=== PATIENT | female | born 1955 | race Caucasian/White ===

== ENCOUNTER 2018-05-06 18:48 | Emergency (ER) | payer BC, OTHER ==
--- NOTE | 2018-05-06 19:13 | ED Physician Documentation ---
PD HPI LOWER EXT INJURY - Stated complaint Stated Complaint: L FT PX - Chief complaint Chief Complaint: Ext Problem - History obtained from History obtained from: Patient - History of Present Illness PD HPI LOW EXT INJURY LOCATION: Left (Slipped on wet grass and hurt L ankle. No other injuries. Cannot walk/bear weight.) Review of Systems Ten Systems: 10 systems reviewed and negative Constitutional: reports: Reviewed and negative Throat: reports: Reviewed and negative Cardiac: reports: Reviewed and negative Respiratory: reports: Reviewed and negative PD PAST MEDICAL HISTORY - Past Medical History Past Medical History: Yes Psych: Depression - Present Medications Home Medications: Ambulatory Orders Medication Instructions Recorded Confirmed Knee Scooter 1 unit TD ONCE #1 05/06/18 Omeprazole 20 mg PO 05/06/18 Oxycodone HCl/Acetaminophen 1 - 2 each PO Q6H PRN #20 tablet 05/06/18 [Percocet 5-325 mg Tablet] Temazepam [Restoril] 30 mg PO 05/06/18 Thioridazine HCl 25 mg PO 05/06/18 buPROPion [Wellbutrin Sr] 100 mg PO BID 05/06/18 05/06/18 - Allergies Allergies/Adverse Reactions: Allergies Allergy/AdvReac Type Severity Reaction Status Date / Time fluoxetine [From Prozac] Allergy Unknown Verified 05/06/18 18:55 paroxetine [From Paxil] Allergy Unknown Verified 05/06/18 18:55 PD ED PE NORMAL - Vitals Vital signs reviewed: Yes - General General: Alert and oriented X 3, No acute distress - HEENT HEENT: PERRL, EOMI - Neck Neck: Supple, no meningeal sign, No bony TTP - Cardiac Cardiac: RRR, No murmur - Respiratory Respiratory: No respiratory distress, Clear bilaterally - Abdomen Abdomen: Soft, Non tender - Back Back: No CVA TTP, No spinal TTP - Derm Derm: Normal color, Warm and dry - Extremities Extremities: Other (Fairly deformed left ankle consistent with at least a bimalleolar fracture, she has bounding pedal pulses.) - Neuro Neuro: Alert and oriented X 3, Normal speech - Psych Psych: Normal mood, Normal affect Results - Vitals Vitals: Vital Signs - 24 hr 05/06/18 05/06/18 05/06/18 18:50 19:39 20:06 Temperature 36.7 C Heart Rate 101 H 87 80 Respiratory 20 18 20 Rate Blood Pressure 165/73 H 128/65 132/64 H O2 Saturation 98 95 98 05/06/18 05/06/18 05/06/18 20:13 20:19 20:35 Temperature Heart Rate 82 78 77 Respiratory 16 18 16 Rate Blood Pressure 129/55 L 147/69 H 127/65 O2 Saturation 88 L 98 96 05/06/18 05/06/18 05/06/18 20:51 21:07 21:12 Temperature Heart Rate 76 76 75 Respiratory 18 18 21 Rate Blood Pressure 127/65 123/65 116/68 O2 Saturation 97 93 94 05/06/18 05/06/18 05/06/18 21:15 21:42 21:49 Temperature Heart Rate 74 73 77 Respiratory 18 18 19 Rate Blood Pressure 120/60 109/70 111/65 O2 Saturation 96 96 93 05/06/18 05/06/18 21:54 21:59 Temperature Heart Rate 82 80 Respiratory 17 18 Rate Blood Pressure 141/73 H 114/70 O2 Saturation 88 L 94 Oxygen O2 Source Nasal cannula Oxygen Flow Rate 2 - Rads (name of study) 3v L ankle Radiology: EMP read contemporaneously (Trimalleolar fracture dislocation) Procedures - Splint (location) L ankle Splint applied by: Physician, Tech Type of splint: Fiberglass, Long leg, Posterior, Stirrup Other: Patient tolerated well, No complications, Neurovascular intact - Reduction Body part reduced: Left, Ankle Fracture or dislocation: Fracture dislocation Reduction aftercare: Splint applied - Procedural sedation Sedation prep: Informed consent, Time out completed, Last meal (5:15pm), PE performed, AHA 2 - mild disease Sedation medications: propofol (60mg IV with each attempt, #1/2 and 80mg then 20mg, then 20mg for attempt #3 totalling 120mg on the third sedation. Total sedation time by me... 35 min.) Patient status during sedation: Responds to tactile. No: Respiratory depression, Hypoxia Sedation recovery: Recovered uneventfully PD MEDICAL DECISION MAKING - ED course ED course: 62-year-old woman with isolated trimalleolar fracture dislocation of the left ankle. After consultation with the orthopedist I attempted reduction. Initially she was given 60 mg of propofol with good effect and she was reduced and splinted. The medial and lateral reduction was adequate but she still had posterior dislocation, so reduction attempt was repeated again with the same dos e of propofol, and on repeat x-rays a still was unhappy with the appearance of the posterior dislocation and I spoke with the orthopedic informatics consultant rubbish collection supervisor you can get Dr. Sage who will come in and would like to try it himself. She was sedated again, third time, and Dr. Sage successfully reduced it and place her in a plaster splint. - Consults Consults: Consulted (name) (Chely Sage, rubbish collection supervisor ortho, 193, rec reduction/splinting and will schedule for OR in 5-7 days) Departure - Departure Disposition: Home, Self Care Clinical Impression: Trimalleolar fracture of ankle, closed Qualifiers: Encounter type: initial encounter Laterality: left Qualified Code(s): S82.852A - Displaced trimalleolar fracture of left lower leg, initial encounter for closed fracture Condition: Good Record reviewed to determine appropriate education?: Yes Instructions: ED Fx Lower Ext Follow-Up: Dallas Sage MD [Provider Admit Priv/Credential] - Prescriptions: Knee Scooter 1 unit TD ONCE #1 Oxycodone HCl/Acetaminophen [Percocet 5-325 mg Tablet] 1 - 2 each PO Q6H PRN #20 tablet PRN Reason: pain Comments: Dr. Sage should be calling you to arrange for a surgical date. Elevation of the ankle is important, anytime you are not up you should have the ankle above the level of your heart. You can ice it through the splint. Do not remove the splint and keep it dry. Do not drink or drive while taking narcotic pain medication. Note that many narcotic pain relievers also contain Tylenol/acetaminophen. Please ensure that your total dose of acetaminophen from all sources does not exceed 3 g (3000 mg) per day. You may get constipated while on this medication. Take a stool softener such as Colace twice a day while you are on it. Also add an [id number] laxative such as senna or MiraLAX on any day that you do not have a bowel movement. If you received a narcotic pain medication or sedative while in the emergency department, do not drive for the next 24 hours. Your blood pressure was elevated today on check into the emergency department. This does not mean that you have hypertension, it is a common phenomenon to come to the emergency department and have elevated blood pressure. I recommend that you see your primary care physician within the week to have it rechecked when you are feeling better.
[2018-05-06] MEDS ORDERED: HYDROcod/ACETAM 5/325 MG TABLET PO STA (19:14)
[2018-05-06] MEDS ORDERED: ONDANSETRON 4 MG/2 ML VIAL IVP STA (19:16)
[2018-05-06] MEDS ORDERED: HYDROmorphone 1 MG/ML CARPUJECT IVP STA (19:16)
[2018-05-06] MEDS ORDERED: PROPOFOL 200 MG/20 ML VIAL IVP STA ×3 (19:38→22:03)
[2018-05-06] MEDS ORDERED: oxyCODONE/ACET 5/325 Prepack 4 PO STA (19:43)
--- NOTE | 2018-05-06 19:54 | XRAY Report ---
Reason: ankle inj Procedure Date: 05/06/2018 Accession Number: [id number] / [id number] Procedure: XR - Ankle 3 View LT CPT Code: FULL RESULT: EXAM: LEFT ANKLE RADIOGRAPHY EXAM DATE: 05/06/2018 07:24 PM. CLINICAL HISTORY: Left ankle pain after fall today. COMPARISON: None. TECHNIQUE: 3 views. FINDINGS: Bones: Moderately displaced transverse fracture through the base of the medial malleolus. Oblique Calvin type B lateral malleolar fracture with mild impaction and dorsolateral displacement and angulation of the distal fracture fragment. Mildly impacted vertical posterior malleolus fracture. Joints: The ankle mortise is disrupted, with dorsolateral dislocation of the talus with respect to the distal tibia, and valgus talar tilt. Soft Tissues: Diffuse soft tissue swelling. IMPRESSION: Trimalleolar ankle fracture dislocation. RADIA
[2018-05-06] MEDS ORDERED: PROPOFOL 200 MG/20 ML VIAL IVP ONE (20:49)
--- NOTE | 2018-05-06 20:51 | XRAY Report ---
Reason: post reduction Procedure Date: 05/06/2018 Accession Number: [id number] / [id number] Procedure: XR - Tib/Fib LT CPT Code: FULL RESULT: EXAM: LEFT TIBIA/FIBULA RADIOGRAPHY EXAM DATE: 05/06/2018 08:38 PM. CLINICAL HISTORY: Post reduction. COMPARISON: ANKLE 3 VIEW LT 05/06/2018 7:13 PM. TECHNIQUE: 2 views. FINDINGS: Bones: There are fractures involving the medial, posterior and lateral malleolus with mild to moderate displacement of fracture fragments. Proximally, the tibia and fibula are intact. Joints: There is posterior dislocation of the talus relative to the tibial plafond. Soft Tissues: Ankle soft tissue swelling. IMPRESSION: Trimalleolar fracture dislocation. RADIA
--- NOTE | 2018-05-06 21:44 | XRAY Report ---
Reason: post reduction 2nd time Procedure Date: 05/06/2018 Accession Number: [id number] / [id number] Procedure: XR - Ankle 2 View LT CPT Code: FULL RESULT: EXAM: LEFT ANKLE RADIOGRAPHY EXAM DATE: 05/06/2018 09:31 PM. CLINICAL HISTORY: Fracture post reduction. COMPARISON: ANKLE 3 VIEW LT 05/06/2018 7:13 PM LEG LOWER LT 05/06/2018 8:28 PM. TECHNIQUE: 2 views. FINDINGS: Bones: Again demonstrated are fractures of the medial and lateral malleolus. There is a posterior malleolus fracture on the lateral image. Joints: There is persistent posterior dislocation of the talus with respect to the articular surface of the distal tibia. Soft Tissues: There is splint cast present. IMPRESSION: 1. Persistent posterior dislocation of the talus with respect to the tibia on the lateral image. RADIA
[2018-05-06 22:25] VITALS: BP 121/63
--- NOTE | 2018-05-06 22:29 | XRAY Report ---
Reason: reduction 3rd attempt Procedure Date: 05/06/2018 Accession Number: [id number] / [id number] Procedure: XR - Ankle 2 View LT CPT Code: FULL RESULT: EXAM: LEFT ANKLE RADIOGRAPHY EXAM DATE: 05/06/2018 10:17 PM. CLINICAL HISTORY: Reduction 3rd attempt. COMPARISON: ANKLE 2 VIEW LT 05/06/2018 9:23 PM. TECHNIQUE: 3 views. FINDINGS: Bones: Status obtained with overlying plaster. The fracture dislocations of the ankle have been reduced. There is normal anatomic alignment between the tibia and the talus. The medial malleolar fracture in the posterior malleolar fractures are in anatomic alignment. RADIA
--- NOTE | 2018-05-12 10:55 | CONSULTATION NOTE ---
Referring Provider Name of Referring Provider:: Danika Daly MD Consult Date: 05/06/18 History of Present Illness - History of Present Illness HPI Comment/Other: Antonietta is a 62-year-old female who injured her left ankle and was found by the emergency medicine team to have a fracture dislocation. Patient had undergone multiple reduction attempts in the emergency room to no avail. Orthopedics was consulted and presents for evaluation of the patient and anticipated closed reduction attempt. Patient reports discomfort in her ankle but denies other significant trauma at this time. Denies previous significant left ankle injury. 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 : reports: None HEENT: reports: None Psych: reports: Depression Musculoskeletal: reports: None Derm: reports: None MRSA Hx?: No - Past Surgical History /HEAVY DUTY PRESS OPERATOR: reports: section, Oophrectomy - POLST Patient has POLST: No Meds/Allgy - Home Medications Home Medications: Ambulatory Orders Medication Instructions Recorded Confirmed Knee Scooter 1 unit TD ONCE #1 05/06/18 Omeprazole 20 mg PO 05/06/18 Oxycodone HCl/Acetaminophen 1 - 2 each PO Q6H PRN #20 tablet 05/06/18 [Percocet 5-325 mg Tablet] Temazepam [Restoril] 30 mg PO 05/06/18 Thioridazine HCl 25 mg PO 05/06/18 buPROPion [Wellbutrin Sr] 100 mg PO BID 05/06/18 05/06/18 - Allergies Allergies/Adverse Reactions: Allergies Allergy/AdvReac Type Severity Reaction Status Date / Time fluoxetine [From Prozac] Allergy Unknown Verified 05/06/18 18:55 paroxetine [From Paxil] Allergy Unknown Verified 05/06/18 18:55 Exam - Physical Exam Comments/Other: Patient is a well-developed somewhat overweight 62-year-old female in mild distress sitting upright in a hospital [place]. Patient's left lower extremity has soft roll in place which is removed. She has a palpable dorsalis pedis pulse noted she has cap refill less than 2 seconds all digits all digits equally warm throughout 4 compartments Compartments soft. Ankle appears posteriorly position compared to distal tibia. Please see procedure note dictated under separate cover. Post procedure patient is noted to have apparently well reduced ankle and remains neurovascularly intact and unchanged distally as examined in the splint. Conclusion/Plan - Other Other Results/Comments: Antonietta is a 62-year-old female with a left ankle trimalleolar fracture dislocation. Patient is met. Her injury is discussed. I recommended attempt at repeat closed reduction under conscious sedation administered by the emergency medicine physician Dr. Daly. We discussed potential risks benefits alternatives of this. We discussed potent ial reduction risks including but not limited to injury to nerve, blood vessel, bone,cartilage, soft tissue structures, numbness, pain, failure to achieve reduction and need for operative intervention, potential for short-term and long-term problems with this injury. Patient verbalized understand above verbalized a wish to proceed with reduction of left ankle fracture dislocation. After closed reduction patient is comfortable in splint she remains neurovascularly intact distally in the splint she is given post splinting instructions. We will plan to see her back in the office in the next 3-5 days and plan for operative intervention. The importance of timeliness, appropriate follow-up, and need for surgery is discussed prior to procedure. Patient verbalized understanding and satisfaction with the plan.
--- NOTE | 2018-05-12 22:48 | OPERATIVE REPORT ---
DATE OF SERVICE: 05/06/2018 Physician: Dallas Sage MD SURGEON: Dallas Sage MD ANESTHESIA: Conscious sedation administered by Dr. Jose Angel Daly, of the emergency medicine depart ment. PREOPERATIVE DIAGNOSIS: Left trimalleolar ankle fracture dislocation. POSTPROCEDURE DIAGNOSIS: Left trimalleolar ankle fracture dislocation. PROCEDURE: 1. Left ankle closed reduction of fracture dislocation. 2. Left ankle short leg plaster splint application. HISTORY OF PRESENT ILLNESS AND INDICATIONS: The patient is a 62-year-old female who sustained a left trimalleolar ankle fracture dislocation, despite multiple reduction attempts by the emergency medici ne team, they were unsuccessful. Orthopedics consultation was sought. It was determined the patient was in need of closed reduction consistent with emergency medicine team's plan. After appropriate e valuation, the risks, benefits and alternatives were reviewed with the patient. She verbalized under standing of those and verbalizing her wished for attempted repeat reduction. On 05/06/2018, conscious sedation is administered by Dr. Daly. Once appropriate level of sedation is achieved, the left ankle is addressed and a combination of distraction plantar flexion and then ul timately dorsiflexion and inversion is used to reduce and then maintain reduction of the fracture. T he fracture was noted to be somewhat unstable, but reduces well and this is held with an appropriatel y well-padded and molded plaster splint. This is a combination of posterior component and U-componen t, which is applied and held with appropriate mold until hardened. The patient is awakened after sedation, reports being comfortable and remains neurovascularly intact distally post-procedure. Postprocedure instructions were given. There were no intraprocedural complications noted. Appropria te and timely followup is discussed. The patient verbalized understanding and satisfaction of the allison n pre and post-procedure. TD: 05/12/2018 11:13
== END 2018-05-06 22:40 | disposition home or self-care (01) ==
LOC: ED 18:48
DX: S82.852A Displaced trimalleolar fracture of left lower leg, initial encounter for closed fracture (principal); W01.0XXA Fall on same level from slipping, tripping and stumbling without subsequent striking against object, initial encounter; R03.0 Elevated blood-pressure reading, without diagnosis of hypertension
CPT/HCPCS: 27818; 73590; 73600; 73610; 96374; 99152; 99153; 99283; 99284; J1170

== ENCOUNTER 2020-08-29 14:22 | Emergency (ER) | payer MEDICARE, OTHER ==
[2020-08-29 14:39] VITALS: BP 150/81
--- NOTE | 2020-08-29 14:56 | ED Physician Documentation ---
History of Present Illness - Stated complaint Stated Complaint: ABD PAIN - Chief complaint Chief Complaint: Abd Pain - Additonal information Additional information: 65-year-old female presents emergency department for evaluation of rectal pain left-sided abdominal pain and constipation. Last bowel movement yesterday a.m. She reports she has never had pain this severe. Discusses one episode in the remote history in which she had constipation and she had to bear down with all of her effort in order to produce a large bowel movement. Pt reports drinking 5 sugar free "rock stars" in order to promote a bowel movement, no relief Patient gives most of the history with her eyes closed. When I request the medical problems or names of medications she takes she tells me she is unable to tell me the names of her medicines but does endorse a history of high blood pressure as well as a conversion disorder. At one point I stated her name in order to get her to open her eyes and she opened them and stated "I am responding to Antonietta now." Pt denies fevers, vomiting, chest pain. Patient does states she had a colonoscopy many years ago but does not know what the results of that were. PSH: Bilateral tubal ligation. Unilateral oophorectomy unknown laterality. Review of Systems Constitutional: denies: Fever, Chills Eyes: reports: Loss of vision Ears: reports: Reviewed and negative Nose: reports: Reviewed and negative Throat: reports: Reviewed and negative Cardiac: denies: Chest pain / pressure, Palpitations, Pedal edema, Calf pain Respiratory: denies: Dyspnea GI: reports: Abdominal Pain, Constipation. denies: Nausea, Vomiting, Diarrhea, Hematemesis : denies: Dysuria, Frequency, Hesitancy Skin: denies: Rash, Lesions Musculoskeletal: denies: Neck pain, Back pain Neurologic: reports: Reviewed and negative Psychiatric: reports: Other (conversion disorder.) Endocrine: reports: Reviewed and negative PD PAST MEDICAL HISTORY - Past Medical History Past Medical History: Yes Cardiovascular: None Respiratory: None Neuro: None Endocrine/Autoimmune: None GI: None LABOR RELATIONS DIRECTOR: None : None HEENT: None Psych: Depression Musculoskeletal: None Derm: None - Past Surgical History Past Surgical History: Yes /LABOR RELATIONS DIRECTOR: section, Oophrectomy - Present Medications Home Medications: Ambulatory Orders Medication Instructions Recorded Confirmed Knee Scooter 1 unit TD ONCE #1 05/06/18 Omeprazole 20 mg PO 05/06/18 Oxycodone HCl/Acetaminophen 1 - 2 each PO Q6H PRN #20 tablet 05/06/18 [Percocet 5-325 mg Tablet] Temazepam [Restoril] 30 mg PO 05/06/18 Thioridazine HCl 25 mg PO 05/06/18 buPROPion [Wellbutrin Sr] 100 mg PO BID 05/06/18 05/06/18 polyethylene glycoL 3350 [Miralax] 17 gm PO DAILY PRN #1 bottle 08/29/20 - Allergies Allergies/Adverse Reactions: Allergies Allergy/AdvReac Type Severity Reaction Status Date / Time fluoxetine [From Prozac] Allergy Unknown Verified 08/29/20 14:27 paroxetine [From Paxil] Allergy Unknown Verified 08/29/20 14:27 Penicillins AdvReac Rash Verified 08/29/20 14:27 - Social History Does the pt smoke?: No Smoking Status: Never smoker Does the pt drink ETOH?: Yes Does the pt have substance abuse?: No - Immunizations Immunizations are current?: Yes - POLST Patient has POLST: No PD ED PE EXPANDED - General General: Alert, No acute distress, Well developed/nourished - Cardiac Cardiac: Regular Rate, Regular Rhythm, Radial strong equal, Pedal strong equal, Cap refill < 2 sec - Respiratory Respiratory: Clear to ausultation mirna. No: Distress, Labored - Abdomen Abdomen: Normal Bowel sounds, Distended, Tender to palpation (Left abdomen wihtotu guarding or rebound) - Rectal Rectal: Hemorrhoid (multiple external thrombosed hemorrhoids. with ENE I did retrieve 3 golf ball peices of stool which were firm and hard. Procedure abated with increased patietn discomfort) - Derm Derm: Normal color, Warm and dry. No: Rash - Extremities Extremities: Normal. No: Deformity, Tenderness, Limited ROM - Neuro Neuro: Alert and Oriented X 3, CNII-XII intact - GCS Eye Opening: Spontaneous Motor: Obeys Commands Verbal: Oriented Total: 15 - Psych Psych: Other (flat affect. States "I am responding to Antonietta now." poor eye contact. slow to respond to questions) Results - Vitals Vitals: Vital Signs - 24 hr 08/29/20 08/29/20 14:27 19:00 Temperature 36.6 C Heart Rate 103 H 98 Respiratory 18 14 Rate Blood Pressure 150/81 H 150/81 H O2 Saturation 99 98 Oxygen O2 Source Room air - Labs Labs: Laboratory Tests 08/29/20 08/29/20 08/29/20 15:06 15:06 18:01 WBC 14.9 H RBC 4.57 Hgb 13.3 Hct 38.9 MCV 85.1 MCH 29.1 MCHC 34.2 RDW 12.8 Plt Count 335 MPV 9.2 Neut # (Auto) 12.2 H Lymph # (Auto) 1.9 [place] # (Auto) 0.7 Eos # (Auto) 0.0 Baso # (Auto) 0.0 Absolute Nucleated RBC 0.00 Nucleated RBC % 0.0 Sodium 125 L Potassium 3.1 L Chloride 85 L Carbon Dioxide 23 Anion Gap 17.0 H BUN 14 Creatinine 0.5 Estimated GFR (MDRD) 123 Glucose 163 H Calcium 9.1 Total Bilirubin 0.7 AST 27 ALT 28 Alkaline Phosphatase 89 Total Protein 8.1 Albumin 4.4 Globulin 3.7 Albumin/Globulin Ratio 1.2 Lipase 27 Urine Color YELLOW Urine Clarity CLEAR Urine pH 7.0 Ur Specific [place] <=1.005 Urine Protein NEGATIVE Urine Glucose (UA) 100 H Urine Ketones TRACE Urine Occult Blood NEGATIVE Urine Nitrite NEGATIVE Urine Bilirubin NEGATIVE Urine Urobilinogen 0.2 (NORMAL) Ur Leukocyte Esterase NEGATIVE Ur Microscopic Review NOT INDICATED Urine Culture Comments NOT INDICATED - Rads (name of study) CT abd Radiology: Final report received (Colonic diverticulosis without-itis. Moderate fecal loading involving the left colon sigmoid colon and rectum compatible with constipation. Marked urinary bladder distention with mild to moderate bilateral hydronephrosis likely related to bladder distention. Appendix is normal. No free fluid or ) PD MEDICAL DECISION MAKING - ED course Complexity details: reviewed old records, reviewed results, re-evaluated patient, considered differential ED course: 65-year-old female presents the emergency department for evaluation of left- sided abdominal pain and constipation which began this a.m. Though she appears well physically she has been somewhat challenging for the staff as she has an unclear psychiatric disorder which may include a conversion disorder. She keeps her eyes closed in conversation and when you speak her name she will respond with I am responding to Antonietta now. On physical exam she has a tender left-sided abdomen without guarding or rebound. Digital rectal exam did reveal a large amount of firm compacted stool in the rectal vault. I did not attempt digital disimpaction but it was tolerated very poorly by the patient. Therefore we will proceed with a CT imaging of the abdomen but will tentatively plan to give her a fleets enema once no acute surgical processes found. Screening CBC shows mild leukocytosis; likely marginalization. She is hypokalemic and hyponatremic. repleated with 1 liter normal saline and [address] of her abdomen showed moderate fecal loading involving the left colon sigmoid colon and rectum compatible with constipation. She is noted to have marked urinary bladder distention with mild to moderate bilateral hydroureteronephrosis likely secondary to the bladder distention. No stones seen. No findings of UA on exam Patient was able to begin voiding on her own in the room in which she allowed the urine to flow over her legs and onto the floor. When she felt she was done urinating a bladder scan showed that she still had about 900 mL of urine therefore Gonzalez catheter was placed with a leg bag. The urinary obstruction is likely secondary to fairly significant constipation. Patient was given a fleets enema here in the emergency department and given some time to attempt to defecate. In addition 1 bottle of magnesium citrate was also ordered. She will be discharged home with prescription for MiraLAX advised to do MiraLAX twice daily until she has 3-4 watery stools. Advise very close follow-up with her primary care provider. If constipation begins to resolve she may be able to have the Gonzalez catheter removed in 2 to 3 days with a trial voiding. Patient is advised to return to the emergency department for fevers, failure to have bowel movements, uncontrolled abdominal pain or any other emergent medical concerns. Departure - Departure Disposition: 01 Home, Self Care Clinical Impression: Acute urinary retention, Hydroureter, Hyponatremia Constipation Qualifiers: Constipation type: unspecified constipation type Qualified Code(s): K59.00 - Constipation, unspecified Hydronephrosis Qualifiers: Hydronephrosis type: unspecified Qualified Code(s): N13.30 - Unspecified hydronephrosis Condition: Stable Record reviewed to determine appropriate education?: Yes Instructions: Constipation , ED Catheter Care Gonzalez, ED Retention Urinary Female Prescriptions: polyethylene glycoL 3350 [Miralax] 17 gm PO DAILY PRN #1 bottle PRN Reason: Constipation Comments: You are seen in the emergency department today for constipation. Your constipation is severe enough that it is limiting your ability to pee on your ow n. Therefore you have developed some swelling in your kidneys. I would like you to increase the amount of water you drink at home as well as begin taking MiraLAX twice daily until you have 4-5 watery bowel movements. You are being sent home with a Gonzalez catheter/leg bag. If your constipation begins to improve in 2 to 3 days we can try to remove the Gonzalez catheter to see if you are able to urinate on your own. It is very important that you discuss this ED visit with your primary care doctor to discuss why your constipation is so severe. If at any point you develop fevers, have suddenly severe abdominal pain uncontrolled vomiting or feel that your symptoms are not improving especially the constipation then please return immediately to the ER. Discharge Date/Time: 08/29/20 19:00
[2020-08-29] MEDS ORDERED: SODIUM CHLORIDE 0.9% 1,000 ML IV STA (14:59)
[2020-08-29] MEDS ORDERED: MINERAL OIL ENEMA 133 ML BOTTLE RC STA (14:59)
[2020-08-29 15:14] LABS: BASOPHILS % (AUTO) 0.2 %; EOSINOPHILS % (AUTO) 0.1 %; HCT - HEMATOCRIT 38.9 % (37.0-47.0); HGB - HEMOGLOBIN 13.3 g/dL (12.0-16.0); LYMPHOCYTES # (AUTO) 1.9 10^3/uL (1.5-3.5); LYMPHOCYTES % (AUTO) 12.5 %; MEAN CORPUSCULAR HEMOGLOBIN 29.1 pg (27.0-31.0); MEAN CORPUSCULAR HGB CONC 34.2 g/dL (32.0-36.0); MEAN CORPUSCULAR VOLUME 85.1 fL (81.0-99.0); MEAN PLATELET VOLUME 9.2 fL (7.9-10.8); MONOCYTES # (AUTO) 0.7 10^3/uL (0.0-1.0); MONOCYTES % (AUTO) 4.6 %; NEUTROPHILS # (AUTO) 12.2 10^3/uL (1.5-6.6); NEUTROPHILS % (AUTO) 82.1 %; PLT - PLATELET COUNT 335 10^3/uL (130-450); RED BLOOD COUNT 4.57 10^6/uL (4.20-5.40); RED CELL DISTRIBUTION WIDTH 12.8 % (12.0-15.0); WHITE BLOOD COUNT 14.9 x10^3/uL (4.8-10.8)
[2020-08-29] MEDS ORDERED: IOVERSOL 320 100 ML VIAL IVP ONE ×2 (15:18→16:17)
[2020-08-29 15:29] LABS: ALBUMIN 4.4 g/dL (3.2-5.5); ALBUMIN/GLOBULIN RATIO 1.2 (1.0-2.2); BILIRUBIN,TOTAL 0.7 mg/dL (0.2-1.0); CALCIUM 9.1 mg/dL (8.5-10.3); CREATININE 0.5 mg/dL (0.4-1.0); POTASSIUM 3.1 mmol/L (3.5-5.0); TOTAL PROTEIN 8.1 g/dL (6.7-8.2)
--- NOTE | 2020-08-29 16:35 | CT Report ---
PROCEDURE: Abdomen/Pelvis W INDICATIONS: left sided abdominal pain CONTRAST: IV CONTRAST: Optiray 320 ml: 100 PO CONTRAST: *NO PO CONTRAST TECHNIQUE: After the administration of contrast, 5 mm thick sections acquired from the diaphragms to the sym physis. 5 mm thick coronal and sagittal reformats were acquired. For radiation dose reduction, the following was used: automated exposure control, adjustment of mA and/or kV according to patient size . COMPARISON: None. FINDINGS: Image quality: Excellent. ABDOMEN: Lung bases: Lung bases are clear of acute opacities. 7 mm nodule noted in the posterior-lateral righ t lung base (series 4, image 25). Heart size is normal. Solid organs: Liver and spleen are normal in size and enhancement. Gallbladder is normal Biliary s ystem is non dilated. Pancreas enhances normally. No adrenal nodules. Kidneys demonstrate normal s ize and enhancement. Mild to moderate bilateral hydroureteral nephrosis as related to markedly disten ded urinary bladder. Peritoneum and bowel: Moderate-sized hiatal hernia. Bowel loops demonstrate normal wall thickness and caliber. Scattered diverticuli noted throughout the colon without evidence of diverticulitis. Modera te amount of stool noted in the left colon, sigmoid colon and rectum. No free fluid or air. Appendix is normal. Nodes and vessels: No retroperitoneal or mesenteric adenopathy by size criteria. Aorta and inferior vena cava are normal in size. Miscellaneous: Small fat-containing umbilical hernia. PELVIS: Genitourinary: Bladder wall thickness is normal. Urinary bladder is markedly distended. Miscellaneous: No inguinal hernias or adenopathy. Bones: No suspicious bony lesions. No vertebral body compression fractures. Spine degenerative disc disease and facet arthropathy are noted. IMPRESSION: 1. Colonic diverticulosis without evidence of diverticulitis. 2. Moderate fecal loading involving the left colon, sigmoid colon and rectum compatible with constipa tion. 3. Marked urinary bladder distention with mild to moderate bilateral hydroureteronephrosis likely rel ated to bladder distention. 4. Appendix is normal. 5. No free fluid or free air. 6. No dilated loops of bowel. Reviewed by: Kalia Bacon MD, PhD on 08/29/2020 4:34 PM PDT Approved by: Kaila Bacon MD, PhD on 08/29/2020 4:34 PM PDT Station ID: [id number]
[2020-08-29] MEDS ORDERED: POTASSIUM CHLORIDE 20 MEQ TABLET PO STA (17:52)
[2020-08-29] MEDS ORDERED: MAGNESIUM CITRATE 296 ML BOTTLE PO STA (18:08)
[2020-08-29 18:14] LABS: BILIRUBIN,URINE NEGATIVE (NEGATIVE); GLUCOSE, URINE (UA) 100 mg/dL (NEGATIVE); KETONES,URINE (UA) TRACE mg/dL (NEGATIVE); LEUKOCYTE ESTERASE, URINE NEGATIVE (NEGATIVE); NITRITE,URINE NEGATIVE (NEGATIVE); OCCULT BLOOD,URINE NEGATIVE (NEGATIVE); PROTEIN,URINE NEGATIVE (NEGATIVE); UROBILINOGEN,URINE 0.2 (NORMAL) E.U./dL (NORMAL)
[2020-08-29 18:34] LABS: CLARITY,URINE CLEAR (CLEAR)
== END 2020-08-29 19:00 | disposition home or self-care (01) ==
LOC: ED 14:22
DX: K59.00 Constipation, unspecified (principal); K64.5 Perianal venous thrombosis; R33.9 Retention of urine, unspecified; N13.30 Unspecified hydronephrosis; N32.89 Other specified disorders of bladder; E87.1 Hypo-osmolality and hyponatremia; E87.6 Hypokalemia; F99 Mental disorder, not otherwise specified
CPT/HCPCS: 36415; 74177; 80053; 81003; 83690; 85025; 99284; A9270; Q9967; 81001; 87086